=== PATIENT | male | born 1945 | race Caucasian/White ===

== ENCOUNTER 2017-02-05 16:04 | Outpatient (CLI) | payer MEDICARE, OTHER ==
[2017-02-05 13:30] LABS: BASOPHILS % (AUTO) 0.8 %; EOSINOPHILS # (AUTO) 0.2 10^3/uL (0.0-0.7); EOSINOPHILS % (AUTO) 4.7 %; HCT - HEMATOCRIT 37.7 % (42.0-52.0); HGB - HEMOGLOBIN 13.3 g/dL (14.0-18.0); LYMPHOCYTES # (AUTO) 1.2 10^3/uL (1.5-3.5); LYMPHOCYTES % (AUTO) 28.9 %; MEAN CORPUSCULAR HEMOGLOBIN 31.5 pg (27.0-31.0); MEAN CORPUSCULAR HGB CONC 35.2 g/dL (32.0-36.0); MEAN CORPUSCULAR VOLUME 89.6 fL (80.0-94.0); MEAN PLATELET VOLUME 10.2 fL (7.4-11.4); MONOCYTES # (AUTO) 0.5 10^3/uL (0.0-1.0); NEUTROPHILS # (AUTO) 2.3 10^3/uL (1.5-6.6); NEUTROPHILS % (AUTO) 54.6 %; NUCLEATED RED BLOOD CELLS AUTO 0.1 /100WBC; RED BLOOD COUNT 4.21 10^6/uL (4.70-6.10); RED CELL DISTRIBUTION WIDTH 13.6 % (12.0-15.0); UNCORRECTED WHITE BLOOD COUNT 4.3 x10^3/uL; WHITE BLOOD COUNT 4.3 x10^3/uL (4.8-10.8)
[2017-02-05 13:51] LABS: CALCIUM 9.5 mg/dL (8.5-10.3); CREATININE 0.9 mg/dL (0.6-1.2); POTASSIUM 3.9 mmol/L (3.5-5.0)
== END 2017-02-05 16:05 | disposition home or self-care (01) ==
LOC: LAB.WCP 16:04
PROVIDERS: ATTEND Internal Medicine Cardiovascular Disease
DX: I25.5 Ischemic cardiomyopathy (principal)
CPT/HCPCS: 36415; 80048; 85025

== ENCOUNTER 2017-02-07 11:58 | Emergency (ER) | payer MEDICARE, OTHER ==
--- NOTE | 2017-02-07 12:43 | ED Physician Documentation ---
PD HPI HEENT - Stated complaint Stated Complaint: JAW PX - Chief complaint Chief Complaint: Cardiac - History obtained from History obtained from: Patient - History of Present Illness Timing - onset: How many days ago (few days to a week or so, of frequent almost continual chest pressure to jaw discomfort, worse the past 1-2 days. Improves short term with NTG. Seen by Fire Extinguisher Inspector recently and changed from Metoprolol to Carvedilol. Scheduled for heart cath due to these symptoms on Feb 19.) Timing - duration: Days, Weeks Timing - details: Gradual onset, Waxing and waning Location: Other (feeling dicomfort in jaw and left side of neck, some in anterior chest as well.) Improves: Medication (NTG) Worsens: No: Swalllowing Associated symptoms: No: Fever, Congestion, Swollen nodes Similar symptoms before: Diagnosis (had similar symptoms with RI/ACS in the past.) Recently seen: Clinic (Dr. Chowdhury, [facility], 2 days ago, changed metoprolol to Carvedilol 6.25 mg bid.) Review of Systems Constitutional: denies: Fever, Chills, Myalgias Nose: denies: Rhinorrhea / runny nose, Congestion Throat: denies: Sore throat Cardiac: reports: Chest pain / pressure. denies: Palpitations, Pedal edema, Calf pain Respiratory: denies: Dyspnea, Cough, Wheezing GI: reports: Nausea. denies: Abdominal Pain, Vomiting, Diarrhea Skin: denies: Rash, Lesions Neurologic: reports: Generalized weakness. denies: Focal weakness, Numbness, Near syncope Endocrine: reports: Easy bruising / bleeding. denies: Weight loss Immunocompromised: denies: Immunocompromised PD PAST MEDICAL HISTORY - Past Medical History Cardiovascular: Hypertension, Coronary artery disease Neuro: None Endocrine/Autoimmune: Type 2 diabetes Psych: None Musculoskeletal: Osteoarthritis - Past Surgical History Ortho: Arthroscopic surgery Cardiovascular: CABG, Coronary stent - Present Medications Home Medications: Ambulatory Orders Medication Instructions Recorded Confirmed Atorvastatin Calcium 80 mg PO DAILY 02/07/17 02/07/17 Bisacodyl [Dulcolax] 5 mg PO ONCE 02/07/17 02/07/17 Carvedilol 6.25 mg PO DAILY 02/07/17 02/07/17 Clonazepam 0.5 mg PO DAILY 02/07/17 02/07/17 Isosorbide Mononitrate ER [Imdur] 30 mg PO DAILY #10 tablet 02/07/17 Lansoprazole [Prevacid] 15 mg PO DAILY 02/07/17 02/07/17 Lisinopril [Prinivil] 5 mg PO DAILY 02/07/17 02/07/17 Venlafaxine [Effexor] 37.5 mg PO BID 02/07/17 02/07/17 metFORMIN [Glucophage] 500 mg PO ONCE 02/07/17 02/07/17 - Allergies Allergies/Adverse Reactions: Allergies Allergy/AdvReac Type Severity Reaction Status Date / Time hydrocodone Allergy Unknown Verified 02/07/17 12:05 - Family History Family history: reports: Non contributory PD ED PE NORMAL - Vitals Vital signs reviewed: Yes - General General: Alert and oriented X 3, No acute distress, Well developed/nourished - HEENT HEENT: Pharynx benign - Neck Neck: Supple, no meningeal sign, No adenopathy - Cardiac Cardiac: RRR, No murmur - Respiratory Respiratory: Clear bilaterally - Abdomen Abdomen: Soft, Non tender - Back Back: No CVA TTP - Derm Derm: Normal color, Warm and dry - Extremities Extremities: No deformity, No tenderness to palpate, Normal ROM s pain, No edema , No calf tenderness / cord - Neuro Neuro: Alert and oriented X 3, No motor deficit, Normal speech Results - Vitals Vitals: Oxygen O2 Source Room air - EKG (time done) 12:17 Rate: Rate (enter#) (75) Rhythm: NSR [place]: Normal Intervals: Normal AR QRS: Normal Ischemia: Normal ST segments. No: ST elevation c/w ischemia, ST depression, T wave inversion Compare to prior EKG: Unchanged from prior EKG - Labs Labs: Laboratory Tests 02/07/17 02/07/17 02/07/17 12:52 12:52 12:52 WBC 4.2 L RBC 4.27 L Hgb 13.3 L Hct 38.6 L MCV 90.4 MCH 31.1 H MCHC 34.4 RDW 13.4 Plt Count 175 MPV 9.6 Neut # 2.1 Lymph # 1.4 L Cottle # 0.4 Eos # 0.2 Baso # 0.0 Absolute Nucleated RBC 0.00 Nucleated RBC % 0.0 Sodium 139 Potassium 3.8 Chloride 101 Carbon Dioxide 26 Anion Gap 12.0 BUN 18 Creatinine 0.9 Estimated GFR (MDRD) 84 L Glucose 115 H Calcium 9.8 Magnesium Total Bilirubin 0.8 AST 28 ALT 29 Alkaline Phosphatase 38 L Troponin I < 0.04 B-Natriuretic Peptide Total Protein 7.5 Albumin 4.5 Globulin 3.0 Albumin/Globulin Ratio 1.5 Lipase 33 02/07/17 02/07/17 13:25 13:25 WBC RBC Hgb Hct MCV MCH MCHC RDW Plt Count MPV Neut # Lymph # Cottle # Eos # Baso # Absolute Nucleated RBC Nucleated RBC % Sodium Potassium Chloride Carbon Dioxide Anion Gap BUN Creatinine Estimated GFR (MDRD) Glucose Calcium Magnesium 1.9 Total Bilirubin AST ALT Alkaline Phosphatase Troponin I B-Natriuretic Peptide 217 H Total Protein Albumin Globulin Albumin/Globulin Ratio Lipase - Rads (name of study) chest Radiology: Prelim report reviewed, EMP read contemporaneously (no acute process) PD MEDICAL DECISION MAKING - ED course Complexity details: reviewed results, re-evaluated patient (pressure gone after NTG here (faint residual discomfort that he says he has had for days/week). ), considered differential, d/w patient, d/w payroll consultant (KNOTTING MACHINE OPERATOR working with Dr. Ngo , corrections officer Cardiology (who was in procedure in environmental laboratory technician) - to add nitrate and f/ u Papo Friday, return if worse/persistent. ) Departure - Departure Disposition: 01 Home, Self Care Clinical Impression: Jaw pain, Angina pectoris Condition: Stable Record reviewed to determine appropriate education?: Yes Follow-Up: Davide Wen MD [Primary Care Provider] - Nomi Michael MD [Physician No Access] - Prescriptions: Isosorbide Mononitrate ER [Imdur] 30 mg PO DAILY #10 tablet Comments: Continue your current medications including the carvedilol at 6.25 mg daily. Add Imdur 30 mg daily until follow-up with cardiology. I talked with the on- call cardiology for Dr. Woods and they suggested adding the imdur and they will try to change your follow-up and cath date from the to this coming week. Return if worsening symptoms despite the above medication. Discharge Date/Time: 02/07/17 16:05
[2017-02-07] MEDS ORDERED: NITROGLYCERIN SL 0.4 MG TABLET SL STA ×2 (13:00→15:05)
[2017-02-07] MEDS ORDERED: CARVEDILOL 3.125 MG TABLET PO STA (13:01)
[2017-02-07 13:04] LABS: BASOPHILS % (AUTO) 0.8 %; EOSINOPHILS # (AUTO) 0.2 10^3/uL (0.0-0.7); HCT - HEMATOCRIT 38.6 % (42.0-52.0); HGB - HEMOGLOBIN 13.3 g/dL (14.0-18.0); LYMPHOCYTES # (AUTO) 1.4 10^3/uL (1.5-3.5); LYMPHOCYTES % (AUTO) 33.1 %; MEAN CORPUSCULAR HEMOGLOBIN 31.1 pg (27.0-31.0); MEAN CORPUSCULAR HGB CONC 34.4 g/dL (32.0-36.0); MEAN CORPUSCULAR VOLUME 90.4 fL (80.0-94.0); MEAN PLATELET VOLUME 9.6 fL (7.4-11.4); MONOCYTES # (AUTO) 0.4 10^3/uL (0.0-1.0); MONOCYTES % (AUTO) 10.5 %; NEUTROPHILS # (AUTO) 2.1 10^3/uL (1.5-6.6); NEUTROPHILS % (AUTO) 50.6 %; RED BLOOD COUNT 4.27 10^6/uL (4.70-6.10); RED CELL DISTRIBUTION WIDTH 13.4 % (12.0-15.0); UNCORRECTED WHITE BLOOD COUNT 4.2 x10^3/uL; WHITE BLOOD COUNT 4.2 x10^3/uL (4.8-10.8)
[2017-02-07] MEDS ORDERED: NITROGLYCERIN SL 0.4 MG TABLET SL ONE (13:14)
[2017-02-07] MEDS ORDERED: SODIUM CHLORIDE FLUSH 0.9% 10 ML SYRINGE IVP ONE (13:14)
[2017-02-07 13:17] LABS: ALBUMIN/GLOBULIN RATIO 1.5 (1.0-2.2); BILIRUBIN,TOTAL 0.8 mg/dL (0.2-1.0); CALCIUM 9.8 mg/dL (8.5-10.3); CREATININE 0.9 mg/dL (0.6-1.2); POTASSIUM 3.8 mmol/L (3.5-5.0); TOTAL PROTEIN 7.5 g/dL (6.7-8.2)
--- NOTE | 2017-02-07 13:33 | XRAY Preliminary Report ---
Exam: XR CHEST 1 VIEW IMPRESSION: 1. Stable mild cardiomegaly. 2. Long-term stability of the focal left lateral lower chest wall pleural thickening consistent with benign etiology. However, if this gentleman has any history of asbestosis exposure, or signs or sympt oms referable to this region, repeat chest CT should be considered.. [facility] SITE ID: [id number]
--- NOTE | 2017-02-07 13:42 | XRAY Report ---
EXAM: CHEST RADIOGRAPHY EXAM DATE: 02/07/2017 12:56 PM. CLINICAL HISTORY: Chest pain. COMPARISON: 03/24/2012. 10/26/2010. CT chest 01/07/2006. TECHNIQUE: 1 view. FINDINGS: Lungs/Pleura: Stable 5 x 2.5 cm focal area of pleural thickening centered at the lateral aspects of t he fifth and sixth ribs without subjacent bone erosion since the 10/26/2010 exam. It was not present on the chest CT 2005. Lungs are clear, normal volume. No effusion, vascular congestion nor pneumothorax. Mediastinum: Stable mild cardiomegaly. Remote sternotomy. No adenopathy. Other: None. IMPRESSION: 1. Stable mild cardiomegaly. 2. Long-term stability of the focal left lateral lower chest wall pleural thickening consistent with benign etiology. However, if this gentleman has any history of asbestos exposure, or signs or symptom s referable to this region, repeat chest CT should be considered. [facility] Referring Provider Line: [phone] SITE ID: [id number]
[2017-02-07] MEDS ORDERED: ISOSORBIDE MONONITRATE ER 30 MG TABLET PO STA (15:05)
[2017-02-07 15:08] VITALS: BP 112/69
== END 2017-02-07 16:05 | disposition home or self-care (01) ==
LOC: ED 11:58
DX: I25.119 Atherosclerotic heart disease of native coronary artery with unspecified angina pectoris (principal); Z95.1 Presence of aortocoronary bypass graft; R68.84 Jaw pain; I10 Essential (primary) hypertension; E11.9 Type 2 diabetes mellitus without complications; Z79.84 Long term (current) use of oral hypoglycemic drugs; M19.90 Unspecified osteoarthritis, unspecified site
CPT/HCPCS: 36415; 71010; 80053; 83690; 83735; 83880; 84484; 85025; 93005; 99284; A9270

== ENCOUNTER 2017-05-27 13:05 | Outpatient (CLI) | payer MEDICARE, OTHER ==
--- NOTE | 2017-05-28 16:29 | Ultrasound Report ---
BILATERAL LOWER EXTREMITY ARTERIAL DUPLEX: 05/27/2017 CLINICAL INDICATION: Type 2 diabetes, peripheral angiopathy, claudication. COMPARISON: 07/15/2013 TECHNIQUE: Real-time sonographic vascular imaging was performed by the art teacher through the lower extremities utilizing both color-flow and Doppler spectral analysis. Multiple quality control representative static images were saved for review. RIGHT SIDE SITE PSV WAVEFORM STEN CONTRACT SHELTERED WORKSHOP SUPERVISOR 91 triphasic [] PSFA 42 triphasic [] MSFA 81 triphasic [] DSFA 78 triphasic [] PFA 51 triphasic [] POP 54 triphasic [] RYAN 60 triphasic [] CAR WASH ATTENDANT AUTOMATIC 71 triphasic [] PER 58 triphasic [] DPA 89 triphasic [] LEFT SIDE SITE PSV WAVEFORM STEN CONTRACT SHELTERED WORKSHOP SUPERVISOR 96 triphasic [] PSFA 93 triphasic [] MSFA 78 triphasic [] DSFA 84 triphasic [] PFA 52 triphasic [] POP 52 triphasic [] RYAN 73 triphasic [] CAR WASH ATTENDANT AUTOMATIC 54 triphasic [] PER 39 biphasic [] DPA 85 triphasic [] FINDINGS RIGHT LEG: Waveforms are diffusely triphasic. There is no evidence of a focal hemodynamically significant arterial stenosis. LEFT LEG: Waveforms are predominantly triphasic. There is no evidence of a focal hemodynamically significant arterial stenosis. IMPRESSION: No evidence of a focal hemodynamically significant arterial stenosis in either leg. No significant interval change. TD: 05/27/2017 21:33 STACIE
== END 2017-05-27 13:06 | disposition home or self-care (01) ==
LOC: DI 13:05
PROVIDERS: ATTEND Podiatrist
DX: I73.9 Peripheral vascular disease, unspecified (principal)
CPT/HCPCS: 93925

== ENCOUNTER 2017-06-03 17:00 | Outpatient (CLI) | payer MEDICARE, OTHER | END 2017-06-03 17:01 | disposition critical access hospital (66) | LOC: EMS 17:00 | PROVIDERS: ATTEND Surgery | DX: R68.89 Other general symptoms and signs (principal); I25.2 Old myocardial infarction | CPT/HCPCS: A0425; A0427 ==

== ENCOUNTER 2017-06-03 17:19 | Emergency (ER) | payer MEDICARE, OTHER ==
--- NOTE | 2017-06-03 18:23 | ED Physician Documentation ---
PD HPI HEENT - Stated complaint Stated Complaint: JAW AND CHEEK BONE PX - Chief complaint Chief Complaint: Heent - History obtained from History obtained from: Patient - History of Present Illness Timing - onset: How many days ago (2-3 days of lef jaw pain c/w prior angina. Had had this and had angioplasty done several months ago which improved it. Pain the past few days, at rest and with light activity. Improves with NTG but not for longer term, back in few hours.) Timing - details: Gradual onset, Waxing and waning Location: Throat (has pain left jaw and mouth, that is similar to his angina.) Improves: Medication (NTG) Worsens: No: Swalllowing, Position, Temperatures Similar symptoms before: Diagnosis (angina) Recently seen: Not recently seen Review of Systems Ten Systems: 10 systems reviewed and negative Constitutional: denies: Fever, Chills Nose: denies: Rhinorrhea / runny nose, Congestion Throat: denies: Sore throat Cardiac: denies: Chest pain / pressure (just in the jaw), Palpitations, Pedal edema, Calf pain Respiratory: denies: Cough GI: denies: Abdominal Pain, Nausea, Vomiting, Diarrhea Neurologic: denies: Focal weakness, Numbness, Confused, Altered mental status, Headache PD PAST MEDICAL HISTORY - Past Medical History Cardiovascular: Hypertension, Coronary artery disease, RI Neuro: None Endocrine/Autoimmune: Type 2 diabetes Psych: None Musculoskeletal: Osteoarthritis - Past Surgical History Ortho: Arthroscopic surgery Cardiovascular: CABG, Coronary stent - Present Medications Home Medications: Ambulatory Orders Medication Instructions Recorded Confirmed Atorvastatin Calcium 80 mg PO DAILY 02/07/17 06/03/17 Bisacodyl [Dulcolax] 5 mg PO ONCE 02/07/17 06/03/17 Carvedilol 6.25 mg PO BID 02/07/17 06/03/17 Isosorbide Mononitrate ER [Imdur] 30 mg PO DAILY #10 tablet 02/07/17 06/03/17 Lansoprazole [Prevacid] 15 mg PO DAILY 02/07/17 06/03/17 Lisinopril [Prinivil] 5 mg PO DAILY 02/07/17 06/03/17 Venlafaxine [Effexor] 37.5 mg PO BID 02/07/17 06/03/17 clonazePAM [Clonazepam] 0.5 mg PO DAILY 02/07/17 06/03/17 metFORMIN [Glucophage] 500 mg PO ONCE 02/07/17 06/03/17 Cholecalciferol (Vitamin D3) 1 cap PO DAILY 06/03/17 06/03/17 [Vitamin D3] Clopidogrel [Plavix] 1 tab PO DAILY 06/03/17 06/03/17 Furosemide 20 mg PO DAILY 06/03/17 06/03/17 Isosorbide Mononitrate ER [Imdur] 30 mg PO DAILY #10 tablet 06/03/17 Lactobacillus Rhamnosus GG 1 cap PO DAILY 06/03/17 06/03/17 [Culturelle] Nitroglycerin 0.4 mg PO Q5MIN PRN 06/03/17 Tramadol HCl 50 mg PO Q6H PRN #15 tablet 06/03/17 - Allergies Allergies/Adverse Reactions: Allergies Allergy/AdvReac Type Severity Reaction Status Date / Time hydrocodone Allergy Unknown Verified 02/07/17 12:05 metoclopramide Allergy Unknown Verified 06/03/17 17:42 Sulfa (Sulfonamide Allergy Edema Verified 06/03/17 17:42 Antibiotics) lactose AdvReac Cramps Verified 06/03/17 17:42 onion AdvReac Nausea Verified 06/03/17 17:42 - Social History Does the pt smoke?: No Smoking Status: Never smoker Does the pt drink ETOH?: No Does the pt have substance abuse?: No - Immunizations Immunizations are current?: Yes - POLST Patient has POLST: No PD ED PE NORMAL - Vitals Vital signs reviewed: Yes - General General: Alert and oriented X 3, No acute distress, Well developed/nourished - HEENT HEENT: Ears normal, Moist mucous membranes, Pharynx benign, Dentition benign - Neck Neck: Supple, no meningeal sign, No adenopathy - Cardiac Cardiac: RRR, No murmur - Respiratory Respiratory: Clear bilaterally - Abdomen Abdomen: Soft, Non tender, Non distended - Derm Derm: Normal color, Warm and dry - Extremities Extremities: No tenderness to palpate, Normal ROM s pain, No edema, No calf tenderness / cord - Neuro Neuro: Alert and oriented X 3, No motor deficit, Normal speech - Psych Psych: Normal mood, Normal affect Results - Vitals Vitals: Oxygen O2 Source Room air - EKG (time done) 17:38 Rate: Rate (enter#) (61) Rhythm: NSR [place]: Normal Intervals: LBBB Ischemia: Normal ST segments, T wave inversion (V1-2), Non specific changes. No : ST elevation c/w ischemia, ST depression Compare to prior EKG: Unchanged from prior EKG - Labs Labs: Laboratory Tests 06/03/17 06/03/17 06/03/17 18:55 18:55 18:55 WBC 4.3 L RBC 3.73 L Hgb 11.5 L Hct 34.1 L MCV 91.6 MCH 30.9 MCHC 33.7 RDW 14.0 Plt Count 146 MPV 9.6 Neut # 2.3 Lymph # 1.3 L [place] # 0.5 Eos # 0.2 Baso # 0.0 Absolute Nucleated RBC 0.00 Nucleated RBC % 0.1 Sodium 138 Potassium 4.5 Chloride 104 Carbon Dioxide 26 Anion Gap 8.0 BUN 21 H Creatinine 0.9 Estimated GFR (MDRD) 83 L Glucose 114 H Calcium 8.2 L Magnesium 2.0 Total Bilirubin 0.5 AST 23 ALT 24 Alkaline Phosphatase 35 L Troponin I < 0.04 B-Natriuretic Peptide Total Protein 6.0 L Albumin 3.7 Globulin 2.3 Albumin/Globulin Ratio 1.6 Lipase 30 06/03/17 06/03/17 18:55 20:28 WBC RBC Hgb Hct MCV MCH MCHC RDW Plt Count MPV Neut # Lymph # [place] # Eos # Baso # Absolute Nucleated RBC Nucleated RBC % Sodium Potassium Chloride Carbon Dioxide Anion Gap BUN Creatinine Estimated GFR (MDRD) Glucose Calcium Magnesium Total Bilirubin AST ALT Alkaline Phosphatase Troponin I < 0.04 B-Natriuretic Peptide 180 H Total Protein Albumin Globulin Albumin/Globulin Ratio Lipase - Rads (name of study) chest Radiology: Prelim report reviewed (no acute process) PD MEDICAL DECISION MAKING - ED course Complexity details: re-evaluated patient (improved with NTG and Morphine here. ) , considered differential (symptoms suggestive for angina based on his prior experience. Will get labs to eval for muscle damage. He is not on long acting nitrates right now. ), d/w patient, d/w advertising sales consultant (Cardiology title i instructional assistant - to place patient on Imdur, and office will call him tomorrow to have follow up. Presume is closing of the marginal branch that had been angioplastied but could not get stent. Might need angioplasty again if persistent. ) Departure - Departure Disposition: 01 Home, Self Care Clinical Impression: Jaw pain, Angina at rest Condition: Stable Record reviewed to determine appropriate education?: Yes Instructions: Angina Dc Follow-Up: Davide Wen MD [Primary Care Provider] - Get Woods MD [Physician No Access] - Prescriptions: Isosorbide Mononitrate ER [Imdur] 30 mg PO DAILY #10 tablet Tramadol HCl 50 mg PO Q6H PRN #15 tablet PRN Reason: Pain Comments: Use the Imdur or daily for the next several days until following up with cardiology. Hold your lisinopril to lessen any side effects on your blood pressure. Add tramadol if needed for pain. Dr. Woods is office should call you tomorrow to set up an follow-up appointment. Call their office if you have not heard them from them by the afternoon. Return if worsening symptoms. Discharge Date/Time: 06/03/17 21:34
[2017-06-03] MEDS ORDERED: NITROGLYCERIN SL 0.4 MG TABLET SL STA ×2 (18:47→20:02)
[2017-06-03] MEDS ORDERED: MORPHINE 10 MG/ML VIAL IVP STA ×2 (18:47→20:02)
[2017-06-03 19:11] LABS: BASOPHILS % (AUTO) 0.8 %; EOSINOPHILS # (AUTO) 0.2 10^3/uL (0.0-0.7); EOSINOPHILS % (AUTO) 3.9 %; HGB - HEMOGLOBIN 11.5 g/dL (14.0-18.0); LYMPHOCYTES # (AUTO) 1.3 10^3/uL (1.5-3.5); LYMPHOCYTES % (AUTO) 30.4 %; MEAN CORPUSCULAR HEMOGLOBIN 30.9 pg (27.0-31.0); MEAN CORPUSCULAR HGB CONC 33.7 g/dL (32.0-36.0); MEAN CORPUSCULAR VOLUME 91.6 fL (80.0-94.0); MEAN PLATELET VOLUME 9.6 fL (7.4-11.4); MONOCYTES # (AUTO) 0.5 10^3/uL (0.0-1.0); MONOCYTES % (AUTO) 11.2 %; NEUTROPHILS # (AUTO) 2.3 10^3/uL (1.5-6.6); NEUTROPHILS % (AUTO) 53.7 %; PLT - PLATELET COUNT 146 10^3/uL (130-450); RED BLOOD COUNT 3.73 10^6/uL (4.70-6.10); WHITE BLOOD COUNT 4.3 x10^3/uL (4.8-10.8)
[2017-06-03 19:20] LABS: ALBUMIN 3.7 g/dL (3.2-5.5); ALBUMIN/GLOBULIN RATIO 1.6 (1.0-2.2); BILIRUBIN,TOTAL 0.5 mg/dL (0.2-1.0); CALCIUM 8.2 mg/dL (8.5-10.3); CREATININE 0.9 mg/dL (0.6-1.2)
--- NOTE | 2017-06-03 19:38 | XRAY Report ---
EXAM: CHEST RADIOGRAPHY EXAM DATE: 06/03/2017 07:24 PM. CLINICAL HISTORY: Chest/jaw pain. COMPARISON: 02/07/2017. TECHNIQUE: 1 view. FINDINGS: Lungs/Pleura: No focal opacities evident. No pleural effusion. No pneumothorax. Mediastinum: There is mild cardiomegaly. Patient has undergone median sternotomy. Other: None. IMPRESSION: No acute intrathoracic plain film abnormality. [facility] Referring Provider Line: [phone] SITE ID: [id number]
[2017-06-03] MEDS ORDERED: ISOSORBIDE MONONITRATE ER 30 MG TABLET PO STA (20:14)
[2017-06-03 21:26] VITALS: BP 126/69
--- NOTE | 2017-06-04 12:20 | ED Physician Documentation ---
ED Addendum - Addendum Addendum: 06/04/17 12:19 chart accessed to answer pharmacy call per pharmacist insurance questioned tramadol / also being on clonzepam reviewed chart advised that if Dr Schmitt felt this was the appropriate prescription I would recommend filling it as prescribed
== END 2017-06-03 21:34 | disposition home or self-care (01) ==
LOC: EDUNIT# → ED 17:19
DX: R68.84 Jaw pain (principal); I44.7 Left bundle-branch block, unspecified; I25.10 Atherosclerotic heart disease of native coronary artery without angina pectoris; I25.2 Old myocardial infarction; I10 Essential (primary) hypertension; E11.9 Type 2 diabetes mellitus without complications; Z95.1 Presence of aortocoronary bypass graft; Z95.5 Presence of coronary angioplasty implant and graft; Z79.84 Long term (current) use of oral hypoglycemic drugs
CPT/HCPCS: 36415; 71045; 80053; 83690; 83735; 83880; 84484; 85025; 93005; 96374; 96376; 99284; A9270

== ENCOUNTER 2018-09-08 18:25 | Outpatient (CLI) | payer MEDICARE, OTHER | END 2018-09-08 18:26 | disposition short-term general hospital (02) | LOC: EMS 18:25 | PROVIDERS: ATTEND Surgery | DX: R07.9 Chest pain, unspecified (principal) | CPT/HCPCS: A0425; A0427 ==

== ENCOUNTER 2019-01-14 08:00 | Outpatient (CLI) | payer MEDICARE, OTHER ==
[2019-01-14 18:51] LABS: HB2 TOTAL 12.6 g/dL; HEMOGLOBIN A1C 0.67 g/dL
[2019-01-14 18:53] LABS: CREATININE 1.1 mg/dL (0.6-1.2)
[2019-01-14 18:55] LABS: CREATININE,URINE 278.2 mg/dL; MICROALBUMIN,URINE 1.4 mg/dL (0-300.0)
== END 2019-01-14 23:59 | disposition home or self-care (01) ==
LOC: LAB.WCP 08:00
PROVIDERS: ATTEND Family Medicine
DX: I25.5 Ischemic cardiomyopathy (principal); E11.9 Type 2 diabetes mellitus without complications
CPT/HCPCS: 36415; 80048; 82043; 82570; 83036

== ENCOUNTER 2019-03-04 08:00 | Outpatient (CLI) | payer MEDICARE, OTHER ==
[2019-03-04 19:17] LABS: BASOPHILS % (AUTO) 0.8 %; EOSINOPHILS # (AUTO) 0.2 10^3/uL (0.0-0.7); EOSINOPHILS % (AUTO) 4.6 %; HGB - HEMOGLOBIN 12.7 g/dL (14.0-18.0); LYMPHOCYTES # (AUTO) 1.1 10^3/uL (1.5-3.5); LYMPHOCYTES % (AUTO) 29.4 %; MEAN CORPUSCULAR HEMOGLOBIN 32.8 pg (27.0-31.0); MEAN CORPUSCULAR HGB CONC 34.5 g/dL (32.0-36.0); MEAN CORPUSCULAR VOLUME 95.1 fL (80.0-94.0); MEAN PLATELET VOLUME 12.1 fL (7.4-11.4); MONOCYTES # (AUTO) 0.4 10^3/uL (0.0-1.0); MONOCYTES % (AUTO) 11.1 %; NEUTROPHILS % (AUTO) 53.6 %; PLT - PLATELET COUNT 200 10^3/uL (130-450); RED BLOOD COUNT 3.87 10^6/uL (4.70-6.10); RED CELL DISTRIBUTION WIDTH 12.7 % (12.0-15.0); WHITE BLOOD COUNT 3.7 x10^3/uL (4.8-10.8)
[2019-03-04 19:45] LABS: BUN - BLOOD UREA NITROGEN 20 mg/dL (6-20); CALCIUM 8.7 mg/dL (8.5-10.3); CARBON DIOXIDE - CO2 27 mmol/L (21-32); CHLORIDE 106 mmol/L (101-111); CHOL/HDL RATIO 3.2 (<5.0); CHOLESTEROL 153 mg/dL; GFR - MDRD 74 (>89); GLUCOSE 154 mg/dL (70-100); HDL CHOLESTEROL 48 mg/dL; LDL CHOLESTEROL,CALCULATED 75 mg/dL; LDL/HDL RATIO 1.6 (<3.6); SODIUM 138 mmol/L (135-145); VLDL CHOLESTEROL 30 mg/dL
== END 2019-03-04 23:59 | disposition home or self-care (01) ==
LOC: LAB.WCP 08:00
PROVIDERS: ATTEND Internal Medicine Cardiovascular Disease
DX: I25.5 Ischemic cardiomyopathy (principal); E78.5 Hyperlipidemia, unspecified
CPT/HCPCS: 36415; 80048; 80061; 83721; 85025

== ENCOUNTER 2020-08-24 08:00 | Outpatient (CLI) | payer MEDICARE, OTHER ==
[2020-08-24 19:11] LABS: ESTIMATED AVERAGE GLUCOSE 148 mg/dL (70-100); HEMOGLOBIN A1c% 6.8 % (4.27-6.07)
[2020-08-24 19:16] LABS: CALCIUM 9.2 mg/dL (8.5-10.3); POTASSIUM 4.5 mmol/L (3.5-5.0)
[2020-08-24 19:24] LABS: BILIRUBIN,URINE NEGATIVE (NEGATIVE); GLUCOSE, URINE (UA) NEGATIVE (NEGATIVE); KETONES,URINE (UA) NEGATIVE (NEGATIVE); LEUKOCYTE ESTERASE, URINE NEGATIVE (NEGATIVE); NITRITE,URINE NEGATIVE (NEGATIVE); OCCULT BLOOD,URINE NEGATIVE (NEGATIVE); PROTEIN,URINE NEGATIVE (NEGATIVE); UROBILINOGEN,URINE 0.2 (NORMAL) E.U./dL (NORMAL)
[2020-08-24 19:31] LABS: CLARITY,URINE CLEAR (CLEAR); CREATININE,URINE 55.1 mg/dL; MICROALBUM/CREATININE RATIO,UR 5.4 ug/mg (<30.0); MICROALBUMIN,URINE 0.3 mg/dL (0-300.0)
[2020-08-24 19:42] LABS: BACTERIA,URINE None Seen /HPF (None Seen); RBC,URINE 0-5 /HPF (0-5); SQUAMOUS EPITHELIAL CELL,UR RARE Squamous (<= Few); WBC,URINE 0-3 /HPF (0-3)
== END 2020-08-24 23:59 | disposition home or self-care (01) ==
LOC: LAB.WCP 08:00
PROVIDERS: ATTEND Internal Medicine
DX: E11.42 Type 2 diabetes mellitus with diabetic polyneuropathy (principal); N50.812 Left testicular pain
CPT/HCPCS: 36415; 80048; 81001; 82043; 82570; 83036; 87086

== ENCOUNTER 2020-08-26 13:02 | Outpatient (CLI) | payer MEDICARE, OTHER ==
--- NOTE | 2020-08-26 13:45 | Ultrasound Report ---
PROCEDURE: Testicle INDICATIONS: TESTICULAR PAIN LEFT TECHNIQUE: Real-time scanning was performed of the scrotum and testicles, with image documentation. Color and p ulse Doppler interrogation was performed of both testicles. COMPARISON: None. FINDINGS: Right: Testicle is normal in size at 5.0 x 2.3 x 2.8 cm, and homogenous in echotexture. Epididymis is normal in overall size and morphology. Trace hydrocele. No varicocele.. Overlying scrotal skin is normal in thickness. Left: Testicle is normal in size at 3.8 x 1.9 x 2.6 cm, and homogeneous in echotexture. Epididymis is normal in overall size and morphology. Trace hydrocele. No varicocele. Overlying scrotal skin is n ormal in thickness. Doppler: Color and pulse Doppler demonstrate normal and symmetric arterial flow in both testicles. IMPRESSION: Trace hydroceles, otherwise unremarkable appearance of the scrotum. Reviewed by: Constantin Gregorio DO on 08/26/2020 12:43 PM TODD Approved by: Constantin Gregorio DO on 08/26/2020 12:43 PM TODD Station ID: [id number]
== END 2020-08-26 13:03 | disposition home or self-care (01) ==
LOC: DI 13:02
PROVIDERS: ATTEND Internal Medicine
DX: N43.3 Hydrocele, unspecified (principal)

== ENCOUNTER 2021-02-23 08:00 | Outpatient (CLI) | payer MEDICARE, OTHER ==
[2021-02-23 12:45] LABS: ALBUMIN 4.5 g/dL (3.2-5.5); ALBUMIN/GLOBULIN RATIO 1.9 (1.0-2.2); CALCIUM 9.2 mg/dL (8.5-10.3); POTASSIUM 4.4 mmol/L (3.5-5.0); TOTAL PROTEIN 6.9 g/dL (6.7-8.2)
[2021-02-23 12:54] LABS: CREATININE,URINE 159.3 mg/dL; MICROALBUM/CREATININE RATIO,UR 3.1 ug/mg (<30.0); MICROALBUMIN,URINE 0.5 mg/dL (0-300.0)
[2021-02-23 12:59] LABS: ESTIMATED AVERAGE GLUCOSE 157 mg/dL (70-100); HEMOGLOBIN A1c% 7.1 % (4.27-6.07)
== END 2021-02-23 23:59 | disposition home or self-care (01) ==
LOC: LAB.WCP 08:00
PROVIDERS: ATTEND Family Medicine
DX: E11.42 Type 2 diabetes mellitus with diabetic polyneuropathy (principal)
CPT/HCPCS: 36415; 80053; 82043; 82570; 83036

== ENCOUNTER 2021-08-28 13:48 | Outpatient (CLI) | payer MEDICARE, OTHER ==
[2021-08-28 18:45] LABS: BUN - BLOOD UREA NITROGEN 23 mg/dL (6-20); CALCIUM 8.9 mg/dL (8.5-10.3); CARBON DIOXIDE - CO2 25 mmol/L (21-32); CHLORIDE 101 mmol/L (101-111); CHOL/HDL RATIO 1.9 (<5.0); CHOLESTEROL 116 mg/dL; CREATININE 1.2 mg/dL (0.6-1.2); GFR - MDRD 59 (>89); GLUCOSE 113 mg/dL (70-100); HDL CHOLESTEROL 62 mg/dL; LDL CHOLESTEROL,CALCULATED 36 mg/dL; LDL/HDL RATIO 0.6 (<3.6); POTASSIUM 4.1 mmol/L (3.5-5.0); SODIUM 134 mmol/L (135-145); TRIGLYCERIDES 89 mg/dL; VLDL CHOLESTEROL 18 mg/dL
[2021-08-28 20:17] LABS: ESTIMATED AVERAGE GLUCOSE 154 mg/dL (70-100)
== END 2021-08-28 13:49 | disposition home or self-care (01) ==
LOC: LAB.N 13:48
PROVIDERS: ATTEND Internal Medicine
DX: E11.42 Type 2 diabetes mellitus with diabetic polyneuropathy (principal)
CPT/HCPCS: 36415; 80048; 80061; 83036; 83721

== ENCOUNTER 2021-08-31 15:02 | Outpatient (CLI) | payer MEDICARE, OTHER ==
[2021-08-31 17:54] LABS: BASOPHILS % (AUTO) 0.7 %; EOSINOPHILS # (AUTO) 0.2 10^3/uL (0.0-0.7); EOSINOPHILS % (AUTO) 5.3 %; HCT - HEMATOCRIT 32.2 % (42.0-52.0); LYMPHOCYTES # (AUTO) 1.4 10^3/uL (1.5-3.5); LYMPHOCYTES % (AUTO) 32.5 %; MEAN CORPUSCULAR HEMOGLOBIN 31.9 pg (27.0-31.0); MEAN CORPUSCULAR HGB CONC 34.2 g/dL (32.0-36.0); MEAN CORPUSCULAR VOLUME 93.3 fL (80.0-94.0); MEAN PLATELET VOLUME 12.6 fL (7.4-11.4); MONOCYTES # (AUTO) 0.5 10^3/uL (0.0-1.0); MONOCYTES % (AUTO) 10.4 %; NEUTROPHILS # (AUTO) 2.2 10^3/uL (1.5-6.6); NEUTROPHILS % (AUTO) 50.9 %; PLT - PLATELET COUNT 183 10^3/uL (130-450); RED BLOOD COUNT 3.45 10^6/uL (4.70-6.10); RED CELL DISTRIBUTION WIDTH 12.4 % (12.0-15.0); WHITE BLOOD COUNT 4.3 x10^3/uL (4.8-10.8)
[2021-08-31 18:29] LABS: % IRON SATURATION 22 % (20-50); IRON 80 ug/dL (45-182); TOTAL IRON BINDING CAPACITY 358 ug/dL (250-450); TRANSFERRIN 256 mg/dL (180-329)
[2021-08-31 18:37] LABS: THYROID STIMULATING HORMONE 2.87 uIU/mL (0.34-5.60)
[2021-08-31 18:43] LABS: FERRITIN 167.9 ng/mL (23.9-336.2)
== END 2021-08-31 15:03 | disposition home or self-care (01) ==
LOC: LAB.N 15:02
PROVIDERS: ATTEND Internal Medicine
DX: F41.1 Generalized anxiety disorder (principal); D64.9 Anemia, unspecified
CPT/HCPCS: 36415; 82607; 82728; 83540; 84443; 84466; 85025

== ENCOUNTER 2022-04-04 10:28 | Outpatient (CLI) | payer OTHER, MEDICARE ==
[2022-04-04 12:24] LABS: CALCIUM 9.1 mg/dL (8.5-10.3); CREATININE 1.3 mg/dL (0.6-1.2); POTASSIUM 4.2 mmol/L (3.5-5.0)
== END 2022-04-04 10:29 | disposition home or self-care (01) ==
LOC: LAB.N 10:28
PROVIDERS: ATTEND Internal Medicine Cardiovascular Disease
DX: I25.2 Old myocardial infarction (principal)
CPT/HCPCS: 36415; 80048

== ENCOUNTER 2022-07-23 13:52 | Outpatient (CLI) | payer OTHER, MEDICARE ==
[2022-07-23 17:56] LABS: BASOPHILS % (AUTO) 0.9 %; EOSINOPHILS # (AUTO) 0.2 10^3/uL (0.0-0.7); EOSINOPHILS % (AUTO) 3.7 %; HCT - HEMATOCRIT 35.6 % (42.0-52.0); HGB - HEMOGLOBIN 12.1 g/dL (14.0-18.0); LYMPHOCYTES # (AUTO) 1.4 10^3/uL (1.5-3.5); LYMPHOCYTES % (AUTO) 33.3 %; MEAN CORPUSCULAR HEMOGLOBIN 31.8 pg (27.0-31.0); MEAN CORPUSCULAR VOLUME 93.7 fL (80.0-94.0); MEAN PLATELET VOLUME 12.2 fL (7.4-11.4); MONOCYTES # (AUTO) 0.4 10^3/uL (0.0-1.0); MONOCYTES % (AUTO) 8.8 %; NEUTROPHILS # (AUTO) 2.3 10^3/uL (1.5-6.6); NEUTROPHILS % (AUTO) 53.1 %; PLT - PLATELET COUNT 172 10^3/uL (130-450); RED CELL DISTRIBUTION WIDTH 12.7 % (12.0-15.0); WHITE BLOOD COUNT 4.3 x10^3/uL (4.8-10.8)
[2022-07-23 18:06] LABS: % IRON SATURATION 29 % (20-50); ALBUMIN 4.2 g/dL (3.2-5.5); ALBUMIN/GLOBULIN RATIO 1.7 (1.0-2.2); ALKALINE PHOSPHATASE 31 IU/L (42-121); ALT ALANINE AMINOTRANSFERASE 24 IU/L (10-60); AST ASPARTATE AMINOTRANSFERASE 20 IU/L (10-42); BILIRUBIN,TOTAL 0.7 mg/dL (0.2-1.0); BUN - BLOOD UREA NITROGEN 25 mg/dL (6-20); CALCIUM 8.8 mg/dL (8.5-10.3); CARBON DIOXIDE - CO2 25 mmol/L (21-32); CHLORIDE 103 mmol/L (101-111); CHOLESTEROL 118 mg/dL; CREATININE 1.1 mg/dL (0.6-1.2); GFR - MDRD 65 (>89); GLUCOSE 130 mg/dL (70-100); HDL CHOLESTEROL 60 mg/dL; IRON 97 ug/dL (45-182); LDL CHOLESTEROL,CALCULATED 39 mg/dL; LDL/HDL RATIO 0.7 (<3.6); SODIUM 135 mmol/L (135-145); TOTAL IRON BINDING CAPACITY 333 ug/dL (250-450); TOTAL PROTEIN 6.7 g/dL (6.7-8.2); TRANSFERRIN 238 mg/dL (180-329); TRIGLYCERIDES 93 mg/dL; VLDL CHOLESTEROL 19 mg/dL
[2022-07-23 18:21] LABS: THYROID STIMULATING HORMONE 1.8 uIU/mL (0.34-5.60)
[2022-07-23 18:28] LABS: FERRITIN 159.1 ng/mL (23.9-336.2)
[2022-07-23 20:48] LABS: ESTIMATED AVERAGE GLUCOSE 151 mg/dL (70-100); HEMOGLOBIN A1c% 6.9 % (4.27-6.07)
== END 2022-07-23 13:53 | disposition home or self-care (01) ==
LOC: LAB.N 13:52
PROVIDERS: ATTEND Internal Medicine
DX: E11.42 Type 2 diabetes mellitus with diabetic polyneuropathy (principal); E78.5 Hyperlipidemia, unspecified; N40.1 Benign prostatic hyperplasia with lower urinary tract symptoms; I25.5 Ischemic cardiomyopathy; D64.9 Anemia, unspecified; Z12.5 Encounter for screening for malignant neoplasm of prostate; F41.1 Generalized anxiety disorder
CPT/HCPCS: 36415; 80053; 80061; 82607; 82728; 83036; 83540; 83721; 84153; 84443; 84466; 85025

== ENCOUNTER 2023-03-15 14:18 | Outpatient (CLI) | payer MEDICARE ==
[2023-03-15 19:20] LABS: BASOPHILS # (AUTO) 0.1 10^3/uL (0.0-0.1); BASOPHILS % (AUTO) 1.2 %; EOSINOPHILS # (AUTO) 0.2 10^3/uL (0.0-0.7); EOSINOPHILS % (AUTO) 5.3 %; HCT - HEMATOCRIT 36.9 % (42.0-52.0); HGB - HEMOGLOBIN 12.3 g/dL (14.0-18.0); LYMPHOCYTES # (AUTO) 1.7 10^3/uL (1.5-3.5); MEAN CORPUSCULAR HEMOGLOBIN 31.5 pg (27.0-31.0); MEAN CORPUSCULAR HGB CONC 33.3 g/dL (32.0-36.0); MEAN CORPUSCULAR VOLUME 94.6 fL (80.0-94.0); MEAN PLATELET VOLUME 12.1 fL (7.4-11.4); MONOCYTES # (AUTO) 0.4 10^3/uL (0.0-1.0); NEUTROPHILS % (AUTO) 46.3 %; PLT - PLATELET COUNT 194 10^3/uL (130-450); RED CELL DISTRIBUTION WIDTH 12.9 % (12.0-15.0); WHITE BLOOD COUNT 4.3 x10^3/uL (4.8-10.8)
[2023-03-15 19:32] LABS: ALBUMIN 4.3 g/dL (3.2-5.5); ALBUMIN/GLOBULIN RATIO 2.2 (1.0-2.2); BILIRUBIN,TOTAL 0.5 mg/dL (0.2-1.0); CREATININE 1.2 mg/dL (0.6-1.3); POTASSIUM 4.3 mmol/L (3.5-4.5); TOTAL PROTEIN 6.3 g/dL (6.4-8.9)
[2023-03-15 21:21] LABS: ESTIMATED AVERAGE GLUCOSE 166 mg/dL (70-100); HEMOGLOBIN A1c% 7.4 % (4.27-6.07)
== END 2023-03-15 14:19 | disposition home or self-care (01) ==
LOC: LAB.N 14:18
PROVIDERS: ATTEND Internal Medicine
DX: E11.42 Type 2 diabetes mellitus with diabetic polyneuropathy (principal); I25.5 Ischemic cardiomyopathy
CPT/HCPCS: 36415; 80053; 83036; 85025

== ENCOUNTER → 2023-04-18 | Outpatient (CLI) | payer MEDICARE | LOC: LAB.N 08:00 | PROVIDERS: ATTEND Physician Assistant Medical | DX: U07.1 COVID-19 (principal) ==

== ENCOUNTER 2023-11-21 10:51 | Outpatient (CLI) | payer MEDICARE ==
[2023-11-21 18:24] LABS: CALCIUM 9.2 mg/dL (8.5-10.3); CREATININE 1.1 mg/dL (0.6-1.3); POTASSIUM 3.8 mmol/L (3.5-4.5)
[2023-11-21 20:14] LABS: ESTIMATED AVERAGE GLUCOSE 166 mg/dL (70-100); HEMOGLOBIN A1c% 7.4 % (4.27-6.07)
== END 2023-11-21 10:52 | disposition home or self-care (01) ==
LOC: LAB.N 10:51
PROVIDERS: ATTEND Internal Medicine
DX: E11.42 Type 2 diabetes mellitus with diabetic polyneuropathy (principal)
CPT/HCPCS: 36415; 80048; 83036